=== PATIENT | male | born 1935 | race Two or more races ===

== ENCOUNTER 2016-04-13 04:15 | Emergency (ER) | payer MEDICARE, OTHER ==
[~2016-04-13] VITALS: Ht 165.1 cm; Wt 84.8 kg
[~2016-04-13 04:15] MED LIST: ALLO300T2 PO; ASPI81TA2 PO; CLOP75TA2 PO; FLUT16SP BNOSTRILS; FURO40TA5 PO; LEVOTHYROXINE; LISI2.5T2 PO; LORA10TA7 PO; METO-302 PO; PANT40TA2 PO; TRAM50TA2 PO
--- NOTE | 2016-04-13 04:20 | NUR ---
PT BIBRA FOR SOB/ASTHMA/WHEEZING; "GETTING WORSE". 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 PT AOX3 NOTED WITH SOB AND WHEEZING. NO NVD AT THIS TIME. PT NOT DIAPHORETIC. PT GOWNED AND PLACED ON MONITOR WAITING FOR MD LANDAVERDE.
[2016-04-13] MEDS ORDERED: IPRATROPIUM NEB FS 0.5 MG/2.5 ML AMPUL.NEB NEB ONE (04:30)
[2016-04-13] MEDS ORDERED: ALBUTEROL FS 2.5 MG/0.5 ML VIAL.NEB NEB ONE (04:30)
--- NOTE | 2016-04-13 04:30 | NUR ---
CALLED RT FOR BREATHING TX.
[2016-04-13] MEDS ORDERED: ALBUTEROL FS 2.5 MG/0.5 ML VIAL.NEB ONE ×2 (04:42→04:43)
--- NOTE | 2016-04-13 04:52 | NUR ---
RT AT BEDSIDE FOR BREATHING TX
--- NOTE | 2016-04-13 05:00 | NUR ---
XRAY AT BEDSIDE
[2016-04-13] MEDS ORDERED: DEXAMETHASONE SOD PHOSPHATE 10 MG/ML VIAL ONE (05:35)
[2016-04-13] MEDS ORDERED: DEXAMETHASONE SOD PHOSPHATE 4 MG/ML VIAL IM ONE (06:00)
--- NOTE | 2016-04-13 06:27 | NUR ---
IV removed. Catheter intact and site benign. Pressure and 4x4 applied to site. No bleeding noted. Patient discharged to home in stable condition. Written and verbal after care instructions given. Patient verbalizes understanding of instruction. ambulatory with a steady gait
[2016-04-13 06:29] VITALS: BP 138/68
== END 2016-04-13 06:30 | disposition home or self-care (01) ==
LOC: ER 04:17
DX: J45.909 Unspecified asthma, uncomplicated (principal); J06.9 Acute upper respiratory infection, unspecified; Z95.0 Presence of cardiac pacemaker; Z87.891 Personal history of nicotine dependence; Z79.82 Long term (current) use of aspirin
CPT/HCPCS: 71010; 94640 ×2; 96372; 99284; A4606; J1100; Z7610

== ENCOUNTER 2022-03-01 20:23 | Inpatient (IN) | payer MEDICARE, OTHER ==
[~2022-03-01] VITALS: Ht 162.6 cm; Wt 83.9 kg
[~2022-03-01 20:23] MED LIST changes: +ASPI-1169 PO; -ASPI81TA2 PO; +CLOP75TA15 PO; -CLOP75TA2 PO; -METO-302 PO; +METO25TA4 PO
--- NOTE | 2022-03-01 20:34 | NUR ---
BIBRA 39 FROM HOME C/O SOB RA 85%. PLACE ON BED, AAOX4, DYSPNEIC RR-30 STURATING AT 96%RA.
[2022-03-01] MEDS ORDERED: IPRATROPIUM NEB FS 0.5 MG/2.5 ML AMPUL.NEB ONE ×2 (20:39→21:21)
[2022-03-01] MEDS ORDERED: ALBUTEROL FS 2.5 MG/0.5 ML VIAL.NEB ONE (20:39)
--- NOTE | 2022-03-01 20:45 | NUR ---
DIRECTOR FIXED INCOME AT BEDSIDE
[2022-03-01] MEDS ORDERED: methylPREDNISolone SOD SUCC 125 MG/2ML VIAL ONE (20:56)
[2022-03-01] MEDS ORDERED: FUROSEMIDE 40 MG/4 ML VIAL ONE (20:56)
[2022-03-01] MEDS ORDERED: Magnesium 1GM/D5W 100ML PREMIX 200 ML IV ONE (20:56)
[2022-03-01] MEDS ORDERED: methylPREDNISolone SOD SUCC 125 MG/2ML VIAL IV ONE (21:00)
[2022-03-01] MEDS ORDERED: FUROSEMIDE 40 MG/4 ML VIAL IV ONE (21:00)
[2022-03-01] MEDS ORDERED: ALBUTEROL FS 2.5 MG/0.5 ML VIAL.NEB NEB ONE (21:00)
[2022-03-01] MEDS ORDERED: IPRATROPIUM NEB FS 0.5 MG/2.5 ML AMPUL.NEB NEB ONE ×2 (21:00→21:30)
--- NOTE | 2022-03-01 21:00 | NUR ---
BIOFUELS PLANT CONSTRUCTION WORKER AT BEDSIDE FOR BREATHING TREATMENT
[2022-03-01 21:01] LABS: BASOPHILS % (AUTO) 0.3 % (0.0-2.0); EOSINOPHILS % (AUTO) 2.6 % (0.0-6.0); HEMATOCRIT 39 % (39-51); LYMPHOCYTES # (AUTO) 1.8 K/uL (0.8-4.8); LYMPHOCYTES % (AUTO) 28.7 % (20.0-44.0); MEAN CORPUSCULAR HGB CONC 34 g/dl (31.0-36.0); MEAN CORPUSCULAR VOLUME 93 fL (80-96); MONOCYTES # (AUTO) 0.8 K/uL (0.1-1.30); MONOCYTES % (AUTO) 12.9 % (2.0-12.0); NEUTROPHILS # (AUTO) 3.5 K/uL (1.8-8.9); NEUTROPHILS % (AUTO) 55.5 % (43.0-81.0); PLATELET COUNT (AUTO) 134 K/uL (150-450); RED BLOOD CELL COUNT(AUTO) 4.16 MIL/uL (4.5-6.0); WHITE BLOOD COUNT (AUTO) 6.3 K/uL (4.3-11.0)
[2022-03-01] MEDS: Magnesium 1GM/D5W 100ML PREMIX 100 ML IV SCH ×2 (21:10→22:03)
--- NOTE | 2022-03-01 21:15 | NUR ---
X-RAY TECH AT BEDSIDE
[2022-03-01 21:16] LABS: CALCIUM, SERUM 8.8 mg/dL (8.5-10.1); CARBON DIOXIDE 28 mmol/L (21-32); CHLORIDE 100 mmol/L (98-107); CREATININE 1.5 mg/dL (0.6-1.3); GLUCOSE 121 mg/dL (74-106); SODIUM SERUM 135 mmol/L (136-145); UREA NITROGEN, BLOOD 12 mg/dL (7-18)
[2022-03-01] MEDS ORDERED: ALBUTEROL FS 2.5 MG/3 ML VIAL.NEB ONE (21:21)
[2022-03-01] MEDS ORDERED: ALBUTEROL FS 2.5 MG/3 ML VIAL.NEB NEB ONE (21:30)
--- NOTE | 2022-03-01 22:27 | NUR ---
SWAB FOR COVID19 SENT TO LAB
--- NOTE | 2022-03-01 23:26 | NUR ---
[facility] PAGED
[2022-03-01] MEDS ORDERED: LORAZEPAM INJ 2 MG/ML VIAL ONE (23:53)
[2022-03-02] MEDS ORDERED: ALBUTEROL FS 2.5 MG/0.5 ML VIAL.NEB NEB PRN
[2022-03-02] MEDS ORDERED: ENOXAPARIN SODIUM 40 MG/0.4 ML DISP.SYRIN SQ SCH
[2022-03-02] MEDS ORDERED: ONDANSETRON HCL/PF 4 MG/2 ML VIAL IVP PRN
[2022-03-02] MEDS ORDERED: IPRATROPIUM/ALBUTEROL INHALER IH SCH
[2022-03-02] MEDS ORDERED: MORPHINE SULFATE INJ 2 MG/ML DISP.SYRIN IV PRN
[2022-03-02] MEDS ORDERED: hydrALAZINE HCL IV 20 MG VIAL IV PRN
[2022-03-02 00:21] LABS: THYROID STIMULATING HORMONE 7.214 uIU/mL (0.358-3.74)
--- NOTE | 2022-03-02 01:15 | NUR ---
RECIEVED ROOM 107
--- NOTE | 2022-03-02 01:57 | NUR ---
REPORT GIVEN TO SUNITA IRBY FOR ISABELLE
--- NOTE | 2022-03-02 02:30 | NUR ---
RN NOTES ADMITTED A 86 Y/O MALE PATIENT FROM ER WITH DX CHF VS COPD. ON ROOM AIR SATING 92%. WITH IV ACCESS AT R AC# 20 PATENT FLUSHES WELL. VITAL SIGNS TAKEN AND RECORDED AFEBRILE. SAFELY TRANSFER TO BED. COMPLETE BODY ASSESSMENT DONE. HOOKED TO OXYGEN VIA NASAL CANULA @ 2LPM PATIENT RR 30'S. ALL SAFETY MEASURES IN PLACE AT ALL TIMES. HOB ELEVATED. CALL LIGHT WITHIN REACH. WILL CLOSELY MONITOR THE PATIENT
[2022-03-02 03:05] VITALS: BP 123/43
[2022-03-02 04:00] VITALS: BP 125/45
[2022-03-02] MEDS ORDERED: methylPREDNISolone SOD SUCC 40 MG/ML VIAL IV SCH (05:00)
[2022-03-02 06:32] LABS: BASOPHILS % (AUTO) 0.1 % (0.0-2.0); HEMATOCRIT 36 % (39-51); HEMOGLOBIN 12.4 g/dL (13.5-17.5); LYMPHOCYTES # (AUTO) 0.5 K/uL (0.8-4.8); LYMPHOCYTES % (AUTO) 13.3 % (20.0-44.0); MEAN CORPUSCULAR HGB CONC 34 g/dl (31.0-36.0); MEAN CORPUSCULAR VOLUME 93 fL (80-96); MONOCYTES # (AUTO) 0.1 K/uL (0.1-1.30); MONOCYTES % (AUTO) 2.3 % (2.0-12.0); NEUTROPHILS # (AUTO) 3.5 K/uL (1.8-8.9); NEUTROPHILS % (AUTO) 84.3 % (43.0-81.0); PLATELET COUNT (AUTO) 125 K/uL (150-450); RED BLOOD CELL COUNT(AUTO) 3.92 MIL/uL (4.5-6.0); WHITE BLOOD COUNT (AUTO) 4.1 K/uL (4.3-11.0)
--- NOTE | 2022-03-02 06:42 | NUR ---
RN NOTES PATIENT REMAINS STABLE NO SOB NO DISTRESS NOTED AT THIS TIME. ALL SAFETY MEASURES IN PLACE AT ALL TIMES. HOB ELEVATED. CALL LIGHT WITHIN REACH. FREQUENT VISUAL MONITORING RENDERED. WILL ENDORSED TO MORNING SHIFT FOR ISABELLE
[2022-03-02 06:51] LABS: ALANINE AMINOTRANSFERASE 19 U/L (12-78); ALBUMIN 3.3 g/dL (3.4-5.0); ALKALINE PHOSPHATASE 68 U/L (46-116); ASPARTATE AMINOTRANSFERASE 18 U/L (15-37); BILIRUBIN,TOTAL 0.3 mg/dL (0.2-1.0); CALCIUM, SERUM 8.9 mg/dL (8.5-10.1); CARBON DIOXIDE 30 mmol/L (21-32); CHLORIDE 102 mmol/L (98-107); CREATININE 1.6 mg/dL (0.6-1.3); GLUCOSE 176 mg/dL (74-106); MAGNESIUM 2.6 mg/dL (1.8-2.4); PHOSPHORUS 2.5 mg/dL (2.5-4.9); POTASSIUM 4.5 mmol/L (3.5-5.1); SODIUM SERUM 138 mmol/L (136-145); TOTAL PROTEIN, SERUM 7.3 g/dL (6.4-8.2); UREA NITROGEN, BLOOD 14 mg/dL (7-18)
--- NOTE | 2022-03-02 07:45 | NUR ---
RN NOTE RECEIVED PT AWAKE IN BED, IN O2 VIA NC @2L. TOLERATING WELL. WITH IV ACCESS ON LAC G20. WITH NO IVF. SAFETY MEASURES FOLLOWED. WILL CONTINUE TO MONITOR.
[2022-03-02 08:00] VITALS: BP 125/47
[2022-03-02] MEDS: FUROSEMIDE 40 MG/4 ML VIAL IV SCH (08:07)
[2022-03-02] MEDS: ASPIRIN 81 MG TAB.CHEW PO SCH (08:07)
[2022-03-02] MEDS: PANTOPRAZOLE 40 MG TABLET.DR PO SCH (08:07)
[2022-03-02] MEDS: ALLOPURINOL 100 MG TABLET PO SCH (08:07)
[2022-03-02] MEDS: CLOPIDOGREL BISULFATE 75 MG TABLET PO SCH (08:07)
[2022-03-02] MEDS: LISINOPRIL (5MG) 5 MG TABLET PO SCH (08:08)
[2022-03-02] MEDS: METOPROLOL SUCCINATE 25 MG TAB.SR.24H PO SCH (08:09)
[2022-03-02] MEDS: HEPARIN SODIUM, PORCINE 5000 UNITS/1 ML VIAL SQ SCH ×2 (08:13→21:25)
--- NOTE | 2022-03-02 11:37 | NUR ---
RN NOTE PT PRONOUNCED @1130 BY GILMA AND CORRECTIONAL OFFICER CAPTAIN, PMD AND HOSPICE MADE AWARE. PT NO PULSE UPON PALPATION AND V/S. TELE MONITOR SHOWING ASYSTOLE. SPOKE WITH PHYSICIST LIGHT AND OPTICS SHIELLA. Addendum: 03/02/22 at 1337 by FRITZ JOSEPH RN DOCUMENT ERROR
[2022-03-02 12:00] VITALS: BP 132/63
--- NOTE | 2022-03-02 13:34 | NUR ---
RN NOTE URINE SPECIMEN COLLECTED, PLACE CALL TO LAB FOR P/U.
[2022-03-02 16:00] VITALS: BP 118/49
[2022-03-02 18:27] LABS: BILIRUBIN,URINE NEGATIVE (NEGATIVE); COLOR,URINE YELLOW (YELLOW); LEUKOCYTE ESTERASE ,URINE NEGATIVE (NEGATIVE); NITRITE, URINE NEGATIVE (NEGATIVE); PH,URINE 5.5 (5.0-8.0); PROTEIN,URINE NEGATIVE (NEGATIVE); UGLUCOSE NEGATIVE (NEGATIVE); UROBILINOGEN,URINE 0.2 EU/dL (0.2)
[2022-03-02 18:35] LABS: CREATININE, URINE 39.1 MG/DL (30.0-125.0)
--- NOTE | 2022-03-02 19:21 | NUR ---
RN NOTE PT AWAKE IN BED, IN O2 VIA NC @2L. TOLERATING WELL, NOT IN RESPIRATORY DISTRESS. WITH IV ACCESS ON LAC G20. WITH NO IVF. DUE MEDICATIONS TAKEN, AM/PM CARE RENDERED. SAFETY MEASURES FOLLOWED. WILL CONTINUE TO MONITOR.
--- NOTE | 2022-03-02 19:30 | NUR ---
RN NOTES RECEIVED REPORT FROM MORNING SHIFT. PATIENT IN BED A/O X1-2 WITH PERIOD OF CONFUSION BENGALI SPEAKING. WITH IV ACCESS AT R AC# 22 PATENT FLUSHES WELL. WITH OXYGEN INHALATION AT 2LPM SATING 98% NO SOB NO DISTRESS NOTED AT THIS TIME. ALL SAFETY MEASURES IN PLACE AT ALL TIMES. HOB ELEVATED. CALL LIGHT WITHIN REACH. WILL CLOSELY MONITOR THE PATIENT
[2022-03-02 20:00] VITALS: BP 152/73
[2022-03-02] MEDS: ALBUTEROL FS 2.5 MG/0.5 ML VIAL.NEB NEB SCH (20:14)
[2022-03-02] MEDS: IPRATROPIUM NEB FS 0.5 MG/2.5 ML AMPUL.NEB IH SCH (20:26)
--- NOTE | 2022-03-02 21:30 | NUR ---
RN NOTES PATIENT IS AGITATED, REMOVING HIS TELE BOX AND OXYGEN, TRYING TO GET OUT OF BED. DR DONG MADE AWARE WITH NEW ORDER HALDOL 2 MG Q4H PRN.
[2022-03-02] MEDS: HALOPERIDOL LACTATE INJ 5 MG/ML VIAL IM PRN (21:58)
[2022-03-02] MEDS ORDERED: LORAZEPAM INJ 2 MG/ML VIAL IV ONE ×2 (23:00)
--- NOTE | 2022-03-02 23:00 | NUR ---
RN NOTES PATIENT STILL AGITATED PULLING OUT IV ACCESS, AND OXYGEN INHALATION. DR DONG ORDERED ATIVAN 2MG IV 1X DOSE. WILL CLOSELY MONITOR THE PATIENT
[2022-03-03] VITALS: BP 120/57
[2022-03-03] MEDS: IPRATROPIUM NEB FS 0.5 MG/2.5 ML AMPUL.NEB IH SCH ×4 (01:27→20:26)
[2022-03-03] MEDS: ALBUTEROL FS 2.5 MG/0.5 ML VIAL.NEB NEB SCH ×4 (01:27→20:26)
[2022-03-03 04:00] VITALS: BP 136/60
--- NOTE | 2022-03-03 06:46 | NUR ---
RN NOTES PATIENT REMAINS STABLE NO SOB NOTED. ALL DUE MEDS GIVEN ORDERD PATIENT STILL WITH PERIODS OF AGITATION AND CONFUSION. WRIST RESTRAINTS IN PLACE CIRCULATION CHECK Q2H. WILL ENDORSED TO MORNING SHIFT FOR ISABELLE
[2022-03-03 06:50] LABS: BASOPHILS % (AUTO) 0.1 % (0.0-2.0); HEMATOCRIT 35 % (39-51); LYMPHOCYTES # (AUTO) 0.7 K/uL (0.8-4.8); LYMPHOCYTES % (AUTO) 5.5 % (20.0-44.0); MEAN CORPUSCULAR HGB CONC 34 g/dl (31.0-36.0); MEAN CORPUSCULAR VOLUME 92 fL (80-96); MONOCYTES # (AUTO) 0.7 K/uL (0.1-1.30); NEUTROPHILS # (AUTO) 10.6 K/uL (1.8-8.9); NEUTROPHILS % (AUTO) 88.4 % (43.0-81.0); PLATELET COUNT (AUTO) 153 K/uL (150-450); RED BLOOD CELL COUNT(AUTO) 3.84 MIL/uL (4.5-6.0)
[2022-03-03 06:56] LABS: CALCIUM, SERUM 8.9 mg/dL (8.5-10.1); CARBON DIOXIDE 23 mmol/L (21-32); CHLORIDE 101 mmol/L (98-107); CREATININE 1.5 mg/dL (0.6-1.3); GLUCOSE 124 mg/dL (74-106); MAGNESIUM 2.4 mg/dL (1.8-2.4); PHOSPHORUS 4.1 mg/dL (2.5-4.9); POTASSIUM 4.4 mmol/L (3.5-5.1); SODIUM SERUM 137 mmol/L (136-145); UREA NITROGEN, BLOOD 34 mg/dL (7-18)
--- NOTE | 2022-03-03 07:32 | NUR ---
RN OPENING NOTES RECEIVED PATIENT IN BED , AWAKE , A/O X1-2 WITH PERIOD OF CONFUSION CANADIAN SPEAKING. WITH IV ACCESS AT R FA # 22 PATENT FLUSHES WELL. WITH OXYGEN INHALATION AT 2LPM SATING 96% NO SOB NO DISTRESS NOTED AT THIS TIME. SAFETY MEASURES IN PLACE AT ALL TIMES. SIDERAILS UP X 2 , WITH BILATERAL SOFT RESTRAINTS ON , ON TELE MONITOR WITH SR WITH HR AT 60 , HOB ELEVATED. CALL LIGHT WITHIN REACH. WILL CONTINUE TO MONITOR PATIENT
[2022-03-03] MEDS: PANTOPRAZOLE 40 MG TABLET.DR PO SCH (08:43)
[2022-03-03] MEDS: METOPROLOL SUCCINATE 25 MG TAB.SR.24H PO SCH (08:44)
[2022-03-03] MEDS: ALLOPURINOL 100 MG TABLET PO SCH (08:44)
[2022-03-03] MEDS: CLOPIDOGREL BISULFATE 75 MG TABLET PO SCH (08:44)
[2022-03-03] MEDS: ASPIRIN 81 MG TAB.CHEW PO SCH (08:44)
[2022-03-03] MEDS: FUROSEMIDE 40 MG/4 ML VIAL IV SCH (08:48)
[2022-03-03] MEDS: HEPARIN SODIUM, PORCINE 5000 UNITS/1 ML VIAL SQ SCH ×2 (08:48→21:06)
[2022-03-03] MEDS: LISINOPRIL (5MG) 5 MG TABLET PO SCH (08:49)
[2022-03-03 08:52] VITALS: BP 143/84
[2022-03-03] MEDS: HALOPERIDOL LACTATE INJ 5 MG/ML VIAL IM PRN ×3 (11:16→22:19)
[2022-03-03 12:00] VITALS: BP 112/46
[2022-03-03 16:00] VITALS: BP 150/77
[2022-03-03] MEDS ORDERED: FUROSEMIDE 40 MG/4 ML VIAL IV ONE (18:00)
--- NOTE | 2022-03-03 19:35 | NUR ---
RN OPENING NOTES, RECEIVED PATIENT IN BED, AWAKE, A/O X1-2 WITH EPISODES OF CONFUSION AND SINGAPOREAN SPEAKING. ON 2L/MIN VIA N/C AND PT TOLERATED WELL. IV ACCESS ON RFA# 22 INTACT AND PATENT. NO S/S OF INFILTRATIONS. BREATHING EVEN UNLABORED. NO FACIAL GRIMACING NOTED. NO ACUTE DISTRESS. STILL NOTED RESTLESSNESS. BILATERAL SOFT RESTRAINTS ON. ALL SAFETY MEASURES IN PLACE. SIDERAILS UP X 3, HOB ELEVATED. PLACE CALL LIGHT WITHIN REACH. WILL CONTINUE TO MONITOR.
--- NOTE | 2022-03-03 19:38 | NUR ---
RN CLOSING NOTES PATIENT IN BED , AWAKE , A/O X1-2 WITH PERIOD OF CONFUSION YAKUT SPEAKING. WITH IV ACCESS AT R FA # 22 PATENT FLUSHES WELL. WITH OXYGEN INHALATION AT 2LPM SATING 96% NO SOB NO DISTRESS NOTED AT THIS TIME. ALL DUE MEDS GIVEN ORDERED , VERY ANXIOUS AND TRIED TO CLIMB OUT OF BED , HALDOL GIVEN ORDERED , PATIENT NOTED VERY CONGESTED AROUNND [address] DENNY WITH ORDER OF LASIX 40 MG IV X ONE DOSE . SAFETY MEASURES IN PLACE AT ALL TIMES. SIDERAILS UP X 2 , WITH BILATERAL SOFT RESTRAINTS ON , ON TELE MONITOR WITH SR WITH HR AT 60 , HOB ELEVATED. CALL LIGHT WITHIN REACH. ENDORSED TO NEXT SHIFT
[2022-03-03 20:00] VITALS: BP 149/71
--- NOTE | 2022-03-03 20:20 | NUR ---
RN NOTES: PT SUPPOSED TO TRANSFER TO [facility]. REPORT GIVEN TO RR RN. NOTED PT WITH SOB, T[place], RR-29. INCREASED O2 TO 4L/MIN. O2 ST 96%. WILL KEEP THE PT IN BARRIE AT THIS MOMENT.
--- NOTE | 2022-03-03 21:03 | NUR ---
RN NOTES: AWA CHACON [phone] CALLED. GAVE HIM THE UPDATES.
--- NOTE | 2022-03-03 22:25 | NUR ---
RN NOTES: PT NOTED WITH AGITATION, RESTLESSNESS, KEPT TRYING TO GETTING UP FROM THE BED. BILATERAL RESTRAINT ON. HALDOL IM 2MG/0.4 ML GIVEN. PT TOLERATED WELL.
[2022-03-04] VITALS: BP 142/71
[2022-03-04] MEDS: IPRATROPIUM NEB FS 0.5 MG/2.5 ML AMPUL.NEB IH SCH ×4 (02:24→19:58)
[2022-03-04] MEDS: ALBUTEROL FS 2.5 MG/0.5 ML VIAL.NEB NEB SCH ×4 (02:25→19:58)
[2022-03-04 04:00] VITALS: BP 134/52
--- NOTE | 2022-03-04 06:32 | NUR ---
RN CLOSING NOTES, PATIENT IN BED, SLEEPING BUT EASILY AROUSABLE, A/O X1-2 WITH EPISODES OF CONFUSION AND [place] SPEAKING. ON 2L/MIN VIA N/C AND PT TOLERATED WELL. O2 SAT 99%. IV ACCESS ON RFA# 22 INTACT AND PATENT. NO S/S OF INFILTRATIONS. BREATHING EVEN UNLABORED. NO FACIAL GRIMACING NOTED. NO ACUTE DISTRESS. STILL NOTED RESTLESSNESS. BILATERAL SOFT RESTRAINTS ON. RELEASED Q 2 HOURS TO ASSESS CIRCULATIONS. ALL DUE MEDS GIVEN ORDERED. ALL SAFETY MEASURES IN PLACE. SIDERAILS UP X 3, HOB ELEVATED. PLACE CALL LIGHT WITHIN REACH. WILL ENDORSE TO MORNING SHIFT NURSE.
--- NOTE | 2022-03-04 07:30 | NUR ---
VENEER STAPLER AM NOTES RECEIVED PATIENT IN BED , AWAKE , A/O X1-2 WITH PERIOD OF CONFUSION OMANI SPEAKING. WITH O2 AT 4L NC, O2 SAT 96%. RESPIRATION UNLABORED. V PACING. SR HR 60 ON MONITOR. NO SIGNS OF PAIN. WITH IV ACCESS AT RFA # 22 PATENT FLUSHES WELL. BILATERAL SOFT RESTRAINTS IN PLACE. RELEASED AND CHECKED FOR CIRCULATION THEN Q 2 HOURS. REGULAR DIET. SAFETY MEASURES IN PLACE. HOB ELEVATED. CALL LIGHT WITHIN REACH. WILL CONTINUE TO MONITOR PATIENT
[2022-03-04 07:54] LABS: BASOPHILS % (AUTO) 0.1 % (0.0-2.0); HEMATOCRIT 40 % (39-51); HEMOGLOBIN 13.1 g/dL (13.5-17.5); LYMPHOCYTES # (AUTO) 0.9 K/uL (0.8-4.8); LYMPHOCYTES % (AUTO) 7.8 % (20.0-44.0); MEAN CORPUSCULAR HGB CONC 33 g/dl (31.0-36.0); MEAN CORPUSCULAR VOLUME 93 fL (80-96); MONOCYTES # (AUTO) 0.7 K/uL (0.1-1.30); MONOCYTES % (AUTO) 6.4 % (2.0-12.0); NEUTROPHILS % (AUTO) 85.7 % (43.0-81.0); PLATELET COUNT (AUTO) 176 K/uL (150-450); RED BLOOD CELL COUNT(AUTO) 4.32 MIL/uL (4.5-6.0); WHITE BLOOD COUNT (AUTO) 11.6 K/uL (4.3-11.0)
[2022-03-04 08:00] VITALS: BP 150/63
[2022-03-04] MEDS: PANTOPRAZOLE 40 MG TABLET.DR PO SCH (08:02)
[2022-03-04] MEDS: ASPIRIN 81 MG TAB.CHEW PO SCH (08:11)
[2022-03-04] MEDS: ALLOPURINOL 100 MG TABLET PO SCH (08:12)
[2022-03-04] MEDS: CLOPIDOGREL BISULFATE 75 MG TABLET PO SCH (08:12)
[2022-03-04 08:14] LABS: CALCIUM, SERUM 8.7 mg/dL (8.5-10.1); CARBON DIOXIDE 29 mmol/L (21-32); CHLORIDE 103 mmol/L (98-107); CREATININE 1.8 mg/dL (0.6-1.3); GLUCOSE 107 mg/dL (74-106); MAGNESIUM 2.3 mg/dL (1.8-2.4); PHOSPHORUS 3.4 mg/dL (2.5-4.9); POTASSIUM 3.9 mmol/L (3.5-5.1); SODIUM SERUM 142 mmol/L (136-145); UREA NITROGEN, BLOOD 36 mg/dL (7-18)
[2022-03-04] MEDS: HEPARIN SODIUM, PORCINE 5000 UNITS/1 ML VIAL SQ SCH ×2 (08:14→20:32)
[2022-03-04] MEDS: METOPROLOL SUCCINATE 25 MG TAB.SR.24H PO SCH (08:33)
[2022-03-04] MEDS: LISINOPRIL (5MG) 5 MG TABLET PO SCH (08:33)
[2022-03-04] MEDS: FUROSEMIDE 40 MG TABLET PO SCH (08:51)
--- NOTE | 2022-03-04 09:30 | NUR ---
RN NOTES DUE MEDS GIVEN RFA IV ACCESS PULLED OUT. CALLED FOR MIDLINE
[2022-03-04] MEDS ORDERED: FLUT1BLS INH (10:21)
[2022-03-04] MEDS ORDERED: TAMS-12 PO (10:21)
[2022-03-04] MEDS ORDERED: LEVO-146 PO (10:21)
[2022-03-04] MEDS ORDERED: VORT5TAB PO (10:21)
[2022-03-04] MEDS ORDERED: FINA5TAB11 PO (10:21)
[2022-03-04] MEDS ORDERED: BRIM5DRO2 EACHEYE (10:21)
[2022-03-04] MEDS ORDERED: APIX2.5T PO (10:21)
[2022-03-04] MEDS ORDERED: SPIR25TA6 PO (10:21)
--- NOTE | 2022-03-04 10:40 | NUR ---
RN NOTES NEW IV ACCESS - SUSAN MIDLINE G18. INTACT CDI
[2022-03-04 12:00] VITALS: BP_SYST 120; BP_SYST 133; BP_DIAS 56; BP_DIAS 61
[2022-03-04 16:00] VITALS: BP 133/61
[2022-03-04] MEDS: methylPREDNISolone SOD SUCC 40 MG/ML VIAL IV SCH (16:45)
[2022-03-04] MEDS: LEVOFLOXACIN (250MG) 250 MG TABLET PO SCH (16:45)
--- NOTE | 2022-03-04 19:30 | NUR ---
UTILITY AGENT OPENING NOTE RECEIVED PATIENT IN BED, AWAKE, A/O X1-2 WITH PERIODS OF CONFUSION, AMERICAN SPEAKING ONLY. WITH O2 AT 3L NC, O2 SAT 97%. RESPIRATION UNLABORED. V PACING. SR HR 60s ON MONITOR. NO SIGNS OF PAIN. WITH IV ACCESS AT RFA # 22 PATENT FLUSHES WELL. BILATERAL SOFT RESTRAINTS IN PLACE. RELEASED AND CHECKED FOR CIRCULATION THEN Q 2 HOURS. REGULAR DIET. SAFETY MEASURES IN PLACE. HOB ELEVATED. CALL LIGHT WITHIN REACH. WILL CONTINUE TO MONITOR PATIENT
--- NOTE | 2022-03-04 19:35 | NUR ---
MS RN CLOSING NOTES PATIENT IN BED , RESTING, A/O X1-2 WITH PERIOD OF CONFUSION ERITREAN SPEAKING. WITH O2 AT 4L NC, O2 SAT 97%. RESPIRATION UNLABORED. NO SIGNS OF PAIN/DISCOMFORT. WITH IV ACCESS AT SUSAN MIDLINE G 18 PATENT FLUSHES WELL. BILATERAL SOFT RESTRAINTS IN PLACE. RELEASED AND CHECKED FOR CIRCULATION THEN Q 2 HOURS. REGULAR DIET. SAFETY MEASURES IN PLACE. HOB ELEVATED. CALL LIGHT WITHIN REACH. PM CARE DONE EARLIER. ALL NEEDS MET AT THIS TIME. ENDORSE TO NEXT SHIFT FOR ISABELLE.
[2022-03-04 20:00] VITALS: BP 131/71
--- NOTE | 2022-03-04 20:25 | NUR ---
RN NOTE RAPID INFLUENZA ANTIGEN A + B DONE. SPECIMEN SENT TO LAB.
[2022-03-04] MEDS: ACETAMINOPHEN 325 MG TABLET PO PRN (21:25)
[2022-03-05] VITALS: BP 135/67
[2022-03-05] MEDS: IPRATROPIUM NEB FS 0.5 MG/2.5 ML AMPUL.NEB IH SCH ×4 (02:20→19:47)
[2022-03-05] MEDS: ALBUTEROL FS 2.5 MG/0.5 ML VIAL.NEB NEB SCH ×4 (02:20→19:47)
[2022-03-05 04:00] VITALS: BP 101/61
[2022-03-05 06:27] LABS: CALCIUM, SERUM 8.6 mg/dL (8.5-10.1); CARBON DIOXIDE 30 mmol/L (21-32); CHLORIDE 104 mmol/L (98-107); CREATININE 1.9 mg/dL (0.6-1.3); GLUCOSE 147 mg/dL (74-106); MAGNESIUM 2.5 mg/dL (1.8-2.4); PHOSPHORUS 3.1 mg/dL (2.5-4.9); POTASSIUM 4.1 mmol/L (3.5-5.1); SODIUM SERUM 141 mmol/L (136-145); UREA NITROGEN, BLOOD 43 mg/dL (7-18)
--- NOTE | 2022-03-05 06:39 | NUR ---
RN NOTE PT IN BED, SLEEPING. NO SIGNIFICANT CHANGE T/O THE NIGHT. DUE MEDS GIVEN. WILL ENDORSE TO AM SHIFT NURSE FOR ISABELLE.
[2022-03-05 07:28] LABS: BASOPHILS % (AUTO) 0.1 % (0.0-2.0); HEMATOCRIT 39 % (39-51); LYMPHOCYTES # (AUTO) 0.5 K/uL (0.8-4.8); LYMPHOCYTES % (AUTO) 5.8 % (20.0-44.0); MEAN CORPUSCULAR HGB CONC 34 g/dl (31.0-36.0); MEAN CORPUSCULAR VOLUME 92 fL (80-96); MONOCYTES # (AUTO) 0.2 K/uL (0.1-1.30); MONOCYTES % (AUTO) 2.4 % (2.0-12.0); NEUTROPHILS # (AUTO) 8.6 K/uL (1.8-8.9); NEUTROPHILS % (AUTO) 91.7 % (43.0-81.0); PLATELET COUNT (AUTO) 180 K/uL (150-450); RED BLOOD CELL COUNT(AUTO) 4.17 MIL/uL (4.5-6.0); WHITE BLOOD COUNT (AUTO) 9.3 K/uL (4.3-11.0)
--- NOTE | 2022-03-05 07:59 | NUR ---
RN OPENING NOTE RECEIVED PATIENT IN BED, AWAKE, A/O X1-2 WITH PERIODS OF CONFUSION, SLOVENIAN SPEAKING ONLY. WITH O2 AT 3L NC, RESPIRATION UNLABORED, NOT IN DISTRESS, NO FACIAL GRIMACING NOTED. V PACING. WITH IV ACCESS AT RFA # 22 PATENT FLUSHES WELL. BILATERAL SOFT RESTRAINTS IN PLACE. RELEASED AND CHECKED FOR CIRCULATION THEN Q 2 HOURS. REGULAR DIET. SAFETY MEASURES IN PLACE. HOB ELEVATED. CALL LIGHT WITHIN REACH. WILL CONTINUE PLAN OF CARE.
[2022-03-05] MEDS: ACETAMINOPHEN 325 MG TABLET PO PRN ×2 (08:29→16:28)
[2022-03-05] MEDS: CLOPIDOGREL BISULFATE 75 MG TABLET PO SCH (08:29)
[2022-03-05] MEDS: LISINOPRIL (5MG) 5 MG TABLET PO SCH (08:29)
[2022-03-05] MEDS: ASPIRIN 81 MG TAB.CHEW PO SCH (08:29)
[2022-03-05] MEDS: PANTOPRAZOLE 40 MG TABLET.DR PO SCH (08:29)
[2022-03-05] MEDS: METOPROLOL SUCCINATE 25 MG TAB.SR.24H PO SCH (08:30)
[2022-03-05] MEDS: methylPREDNISolone SOD SUCC 40 MG/ML VIAL IV SCH ×2 (08:30→16:28)
[2022-03-05] MEDS: FUROSEMIDE 40 MG TABLET PO SCH (08:30)
[2022-03-05] MEDS: HEPARIN SODIUM, PORCINE 5000 UNITS/1 ML VIAL SQ SCH ×2 (08:31→20:33)
[2022-03-05] MEDS: ALLOPURINOL 100 MG TABLET PO SCH (08:50)
--- NOTE | 2022-03-05 10:00 | NUR ---
RN NOTES RECHECKED BP AFTER GIVEN BLOOD PRESSURE MEDICATION BP= 147/60 HR 61,WILL CONTINUE PLAN OF CARE
[2022-03-05 12:00] VITALS: BP 141/70
--- NOTE | 2022-03-05 16:01 | NUR ---
Next of Kin: Patient's Son, Darryl [phone] contact information
[2022-03-05] MEDS: LEVOFLOXACIN (250MG) 250 MG TABLET PO SCH (16:28)
[2022-03-05] MEDS: ENSURE ENLIVE CHOC 237 ML CAN PO SCH (17:00)
--- NOTE | 2022-03-05 17:04 | NUR ---
RN NOTES NOTED PATIENT BEEN REFUSING BREAKFAST AND LUNCH, PATIENT STATED NOT HUNGRY, ONLY WANT'S WATER, DR. ROBB INFORMED WITH NEW ORDER ENSURE TID, NOTED AND CARRIED OUT. WILL CONTINUE PLAN OF CARE.
--- NOTE | 2022-03-05 18:12 | NUR ---
PER INES SON [phone] PT. HAS HISTORY OF CONFUSION AND HAS OXYGEN AT HOME. CM AWARE.
--- NOTE | 2022-03-05 18:30 | NUR ---
MS RN CLOSING NOTES PATIENT IN BED , RESTING, A/O X1-2 WITH PERIOD OF CONFUSION GREEK SPEAKING. WITH O2 AT 3L NC, O2 SAT 95%, RESPIRATION UNLABORED. NO SIGNS OF PAIN/DISCOMFORT. WITH IV ACCESS AT SUSAN MIDLINE G 18 PATENT AND INTACT, FLUSHES WELL. BILATERAL SOFT RESTRAINTS IN PLACE. RELEASED AND CHECKED FOR CIRCULATION THEN Q 2 HOURS. EPISODES OF GETTING UP, REORRIENT PATIENT. SAFETY MEASURES IN PLACE. HOB ELEVATED. CALL LIGHT WITHIN REACH.WILL ENDORSE TO SCOOP MACHINE OPERATOR NURSE FOR ISABELLE.
--- NOTE | 2022-03-05 19:10 | NUR ---
RN OPENING NOTES PATIENT RECEIVED ON BED SLEEPING BUT AROUSE EASILY, ON NASAL CANULA @ 3LPM SATING AT 94%, RESPIRATORY EVEN AND UNLABORED NO SOB NOTED, AFEBRILE, NO S/S OF DISTRESS NOTED. NOTED WITH SUSAN MID LINE, FLUSHED WITH NS, NO S/S OF INFILTRATION NOTED. NOTED WITH BILATERAL SOFT WRIST RESTRAINT, RELEASE AND REASSESS Q2H FOR CIRCULATION. ALL SAFETY MEASURE PROVIDED. BED IN LOWEST POSITION, LOCKED. CONTINUE TO MONITOR.
[2022-03-05 20:00] VITALS: BP 131/73
[2022-03-06] MEDS: ACETAMINOPHEN 325 MG TABLET PO PRN (01:08)
[2022-03-06] MEDS: IPRATROPIUM NEB FS 0.5 MG/2.5 ML AMPUL.NEB IH SCH ×4 (02:03→19:30)
[2022-03-06] MEDS: ALBUTEROL FS 2.5 MG/0.5 ML VIAL.NEB NEB SCH ×4 (02:03→19:30)
[2022-03-06 04:00] VITALS: BP 108/73
[2022-03-06 06:10] LABS: BASOPHILS % (AUTO) 0.1 % (0.0-2.0); HEMATOCRIT 38 % (39-51); HEMOGLOBIN 12.9 g/dL (13.5-17.5); LYMPHOCYTES # (AUTO) 0.6 K/uL (0.8-4.8); LYMPHOCYTES % (AUTO) 4.1 % (20.0-44.0); MEAN CORPUSCULAR HGB CONC 34 g/dl (31.0-36.0); MEAN CORPUSCULAR VOLUME 92 fL (80-96); MONOCYTES # (AUTO) 0.6 K/uL (0.1-1.30); MONOCYTES % (AUTO) 4.4 % (2.0-12.0); NEUTROPHILS # (AUTO) 12.7 K/uL (1.8-8.9); NEUTROPHILS % (AUTO) 91.4 % (43.0-81.0); PLATELET COUNT (AUTO) 212 K/uL (150-450); RED BLOOD CELL COUNT(AUTO) 4.14 MIL/uL (4.5-6.0); WHITE BLOOD COUNT (AUTO) 13.9 K/uL (4.3-11.0)
[2022-03-06 06:15] LABS: ALANINE AMINOTRANSFERASE 42 U/L (12-78); ALBUMIN 3.3 g/dL (3.4-5.0); ALKALINE PHOSPHATASE 65 U/L (46-116); ASPARTATE AMINOTRANSFERASE 47 U/L (15-37); BILIRUBIN,TOTAL 0.9 mg/dL (0.2-1.0); CALCIUM, SERUM 8.6 mg/dL (8.5-10.1); CARBON DIOXIDE 29 mmol/L (21-32); CHLORIDE 102 mmol/L (98-107); CREATININE 2.2 mg/dL (0.6-1.3); GLUCOSE 131 mg/dL (74-106); MAGNESIUM 2.6 mg/dL (1.8-2.4); PHOSPHORUS 3.3 mg/dL (2.5-4.9); POTASSIUM 4.4 mmol/L (3.5-5.1); SODIUM SERUM 139 mmol/L (136-145); TOTAL PROTEIN, SERUM 7.4 g/dL (6.4-8.2); UREA NITROGEN, BLOOD 54 mg/dL (7-18)
[2022-03-06 08:00] VITALS: BP 128/65
[2022-03-06] MEDS: METOPROLOL SUCCINATE 25 MG TAB.SR.24H PO SCH (08:23)
[2022-03-06] MEDS: PANTOPRAZOLE 40 MG TABLET.DR PO SCH (08:24)
[2022-03-06] MEDS: ALLOPURINOL 100 MG TABLET PO SCH (08:24)
[2022-03-06] MEDS: CLOPIDOGREL BISULFATE 75 MG TABLET PO SCH (08:24)
[2022-03-06] MEDS: ASPIRIN 81 MG TAB.CHEW PO SCH (08:24)
[2022-03-06] MEDS: methylPREDNISolone SOD SUCC 40 MG/ML VIAL IV SCH (08:25)
[2022-03-06] MEDS: ENSURE ENLIVE CHOC 237 ML CAN PO SCH ×3 (08:25→19:01)
[2022-03-06] MEDS: LISINOPRIL (5MG) 5 MG TABLET PO SCH (08:25)
[2022-03-06] MEDS: HEPARIN SODIUM, PORCINE 5000 UNITS/1 ML VIAL SQ SCH ×2 (08:27→21:46)
[2022-03-06] MEDS ORDERED: methylPREDNISolone SOD SUCC 40 MG/ML VIAL IV SCH (14:30)
[2022-03-06] MEDS: LEVOFLOXACIN (250MG) 250 MG TABLET PO SCH (15:45)
--- NOTE | 2022-03-06 19:30 | NUR ---
RN OPENING NOTE PT FOUND WATCHING TV IN SEMI-FOWLERS POSITION. EYES OPEN SPONTANEOUSLY BUT DOES NOT ANSWER MY QUESTIONS. SKIN WARM, DRY AND INTACT. PT ON NC @ 3LPM AND SATTING AT 93%. SUSAN MIDLINE INTACT. SAFETY PRECAUTIONS IN PLACE. BED LOCKED AND AT LOWEST POSITION. BED ALARM ON AND BILAT SOFT RESTRAINTS IN PLACE. CALL LIGHT WITHIN REACH.
[2022-03-06 20:00] VITALS: BP 128/66
[2022-03-07] MEDS: IPRATROPIUM NEB FS 0.5 MG/2.5 ML AMPUL.NEB IH SCH ×4 (01:15→20:15)
[2022-03-07] MEDS: ALBUTEROL FS 2.5 MG/0.5 ML VIAL.NEB NEB SCH ×4 (01:15→20:16)
[2022-03-07 04:00] VITALS: BP 106/63
[2022-03-07 07:35] LABS: HEMATOCRIT 39 % (39-51); HEMOGLOBIN 13.2 g/dL (13.5-17.5); LYMPHOCYTES # (AUTO) 0.9 K/uL (0.8-4.8); LYMPHOCYTES % (AUTO) 6.1 % (20.0-44.0); MEAN CORPUSCULAR HGB CONC 34 g/dl (31.0-36.0); MEAN CORPUSCULAR VOLUME 93 fL (80-96); MONOCYTES # (AUTO) 1.1 K/uL (0.1-1.30); MONOCYTES % (AUTO) 7.3 % (2.0-12.0); NEUTROPHILS # (AUTO) 12.5 K/uL (1.8-8.9); NEUTROPHILS % (AUTO) 86.6 % (43.0-81.0); PLATELET COUNT (AUTO) 233 K/uL (150-450); RED BLOOD CELL COUNT(AUTO) 4.16 MIL/uL (4.5-6.0); WHITE BLOOD COUNT (AUTO) 14.5 K/uL (4.3-11.0)
--- NOTE | 2022-03-07 07:45 | NUR ---
RN OPENING NOTES RECEIVED PATIENT REPORT FROM NIGHTSHIFT RN. PATIENT AWAKE IN BED BREATHING EVELY AND UNLABORED ON 3 LITERS SUPPLEMENTAL OXYGEN VIA NASAL CANULA. IV ACCESS ON RIGHT UPPER ARM MIDLINE FLUSHING EASILY WITH NO RESISTANCE. BILATERAL WRIST RESTRAINTS NOTED, CIRCULATION IS WITHIN NORMAL LIMITS. SAFETY MEASURES IMPLEMENTED WILL CONTINUE PLAN OF CARE AND ANTICIPATE NEEDS.
[2022-03-07 07:49] LABS: CALCIUM, SERUM 9.2 mg/dL (8.5-10.1); CARBON DIOXIDE 29 mmol/L (21-32); CHLORIDE 103 mmol/L (98-107); CREATININE 2.8 mg/dL (0.6-1.3); GLUCOSE 130 mg/dL (74-106); MAGNESIUM 2.7 mg/dL (1.8-2.4); PHOSPHORUS 4.4 mg/dL (2.5-4.9); POTASSIUM 3.8 mmol/L (3.5-5.1); SODIUM SERUM 144 mmol/L (136-145); UREA NITROGEN, BLOOD 67 mg/dL (7-18)
[2022-03-07 08:00] VITALS: BP 145/66
[2022-03-07] MEDS: ASPIRIN 81 MG TAB.CHEW PO SCH (08:44)
[2022-03-07] MEDS: PANTOPRAZOLE 40 MG TABLET.DR PO SCH (08:44)
[2022-03-07] MEDS: methylPREDNISolone SOD SUCC 40 MG/ML VIAL IV SCH (08:44)
[2022-03-07] MEDS: ALLOPURINOL 100 MG TABLET PO SCH (08:45)
[2022-03-07] MEDS: CLOPIDOGREL BISULFATE 75 MG TABLET PO SCH (08:45)
[2022-03-07] MEDS: METOPROLOL SUCCINATE 25 MG TAB.SR.24H PO SCH (08:45)
[2022-03-07] MEDS: LISINOPRIL (5MG) 5 MG TABLET PO SCH (08:46)
[2022-03-07] MEDS: HEPARIN SODIUM, PORCINE 5000 UNITS/1 ML VIAL SQ SCH ×2 (08:50→21:47)
[2022-03-07] MEDS: ENSURE ENLIVE CHOC 237 ML CAN PO SCH ×3 (08:51→17:02)
[2022-03-07] MEDS: IV D5/ 0.9% NACL 1,000 ML IV SCH (12:05)
[2022-03-07] MEDS: LEVOFLOXACIN (250MG) 250 MG TABLET PO SCH (15:32)
[2022-03-07 16:00] VITALS: BP 109/57
--- NOTE | 2022-03-07 18:58 | NUR ---
PATIENT REMAINS IN ROOM. HAND OFF REPORT GIVEN TO NIGHTSHIFT RN FOR CONTINUATION OF CARE.
--- NOTE | 2022-03-07 19:30 | NUR ---
RN OPENING NOTE PT A&OX2 AND CONFUSED. TURKMEN SPEAKING. PT ON 3 LPM NC AND TOLERATING WELL. SKIN IS WARM, DRY AND INTACT. SUSAN MIDLINE INTACT AND FLUSHED. BILAT SOFT WRIST RESTARINTS IN PLACE. PT DENIES OTHER NEEDS AT THIS TIME. SAFETY PRECAUTIONS IN PLACE. BED LOCKED AND AT LOWEST POSITION WITH X2 RAILS UP. BED ALARM ON AND CALL LIGHT WITHIN REACH.
[2022-03-08] VITALS: BP 111/57
[2022-03-08] MEDS: IPRATROPIUM NEB FS 0.5 MG/2.5 ML AMPUL.NEB IH SCH ×4 (01:21→20:40)
[2022-03-08] MEDS: ALBUTEROL FS 2.5 MG/0.5 ML VIAL.NEB NEB SCH ×4 (01:22→20:40)
[2022-03-08] MEDS: IV D5/ 0.9% NACL 1,000 ML IV SCH ×2 (02:25→19:35)
--- NOTE | 2022-03-08 07:10 | NUR ---
RN NOTES RECEIVED PT ON BED, ALERT/ CONFUSED , GRENADIAN SPEAKING. PT ON 2L O2 N/C , SUSAN MIDLINE INTACT AND FLUSHED. BARBY. SOFT WRIST RESTRAINTS ON FOR PT SAFETY , SAFETY PRECAUTIONS IN PLACE. BED LOCKED AND AT LOWEST POSITION WITH RAILS UP x3. BED ALARM ON AND CALL LIGHT WITHIN EASY REACH. CONTINUE TO MONITOR .
[2022-03-08 07:24] LABS: BASOPHILS % (AUTO) 0.1 % (0.0-2.0); HEMATOCRIT 37 % (39-51); HEMOGLOBIN 12.4 g/dL (13.5-17.5); LYMPHOCYTES # (AUTO) 0.5 K/uL (0.8-4.8); LYMPHOCYTES % (AUTO) 3.3 % (20.0-44.0); MEAN CORPUSCULAR HGB CONC 33 g/dl (31.0-36.0); MEAN CORPUSCULAR VOLUME 93 fL (80-96); MONOCYTES # (AUTO) 0.9 K/uL (0.1-1.30); NEUTROPHILS # (AUTO) 13.2 K/uL (1.8-8.9); NEUTROPHILS % (AUTO) 90.6 % (43.0-81.0); PLATELET COUNT (AUTO) 220 K/uL (150-450); RED BLOOD CELL COUNT(AUTO) 3.98 MIL/uL (4.5-6.0); WHITE BLOOD COUNT (AUTO) 14.6 K/uL (4.3-11.0)
[2022-03-08 08:00] VITALS: BP 123/57
[2022-03-08] MEDS: CLOPIDOGREL BISULFATE 75 MG TABLET PO SCH (08:23)
[2022-03-08] MEDS: ALLOPURINOL 100 MG TABLET PO SCH (08:23)
[2022-03-08] MEDS: PANTOPRAZOLE 40 MG TABLET.DR PO SCH (08:25)
[2022-03-08] MEDS: METOPROLOL SUCCINATE 25 MG TAB.SR.24H PO SCH (08:25)
[2022-03-08] MEDS: ASPIRIN 81 MG TAB.CHEW PO SCH (08:26)
[2022-03-08] MEDS: methylPREDNISolone SOD SUCC 40 MG/ML VIAL IV SCH (08:26)
[2022-03-08] MEDS: ENSURE ENLIVE CHOC 237 ML CAN PO SCH ×3 (08:26→16:46)
[2022-03-08] MEDS: HEPARIN SODIUM, PORCINE 5000 UNITS/1 ML VIAL SQ SCH ×2 (08:28→21:33)
[2022-03-08 08:42] LABS: CARBON DIOXIDE 27 mmol/L (21-32); CHLORIDE 103 mmol/L (98-107); CREATININE 2.1 mg/dL (0.6-1.3); GLUCOSE 125 mg/dL (74-106); POTASSIUM 3.9 mmol/L (3.5-5.1); SODIUM SERUM 138 mmol/L (136-145); UREA NITROGEN, BLOOD 56 mg/dL (7-18)
[2022-03-08 08:43] LABS: MAGNESIUM 2.4 mg/dL (1.8-2.4)
[2022-03-08 08:48] VITALS: BP 125/75
--- NOTE | 2022-03-08 08:49 | NUR ---
received awake,alert,unable to ff commands ,able to eat breakfast 75 percent.fall risk precaution observed.
[2022-03-08 10:47] LABS: PHOSPHORUS 3.1 mg/dL (2.5-4.9)
[2022-03-08] MEDS: HALOPERIDOL LACTATE INJ 5 MG/ML VIAL IM PRN (11:31)
[2022-03-08 12:00] VITALS: BP 135/54
--- NOTE | 2022-03-08 12:00 | NUR ---
RN NOTES PT RESTLESS , SCREAMS OUT FOR WATER AT TIMES, VSS STABLE CONTINUE TO MONITOR .
[2022-03-08] MEDS: HYDROCODONE/APAP 5/325MG TABLET PO PRN ×2 (13:56→22:24)
[2022-03-08 16:00] VITALS: BP 148/62
[2022-03-08] MEDS: LEVOFLOXACIN (250MG) 250 MG TABLET PO SCH (16:45)
--- NOTE | 2022-03-08 18:00 | NUR ---
RN NOTES NO SIGNIFCANT CHANGES NOTED ON THIS SHIFT , WILL ENDORSE TO MULTI OPERATION FORMING MACHINE SETTER NURSE FOR CONTINUITY OF CARE .
[2022-03-08] MEDS: ACETAMINOPHEN 325 MG TABLET PO PRN (19:34)
--- NOTE | 2022-03-08 19:47 | NUR ---
RN OPENING NOTE PT FOUND SITTING UP IN BED. A&OX2 AND CONFUSED. C/O PAIN AND WAS GIVEN 650 MG ACETAMINOPHEN PO. PT ON 2 LPM NC AND TOLERATING WELL. RESPIRATIONS EVEN AND UNLABORED. SKIN IS WARM AND DRY. SUSAN 22G IV INTACT AND RUNNING D5NS @ 75 MLM/HR. BILAT SOFT WRIST RESTRAINTS IN PLACE. SAFETY PRECAUTIONS IN PLACE. BED LOCKED AND AT LOWEST LEVEL. X2 RAILS UP AND BED ALARM ON. CALL LIGHT WITHIN REACH.
[2022-03-09] VITALS: BP 127/71
--- NOTE | 2022-03-09 00:53 | NUR ---
RN NOTE PT R ARM 22G IV INFILTRATED. IV DISCONTINUED. SKIN IS TAUGHT AND COLD. ELEVATED EXTREMITY AND APPLIED COLD PACKS. WILL CONTINUE TO MONITOR AND REASSESS.
--- NOTE | 2022-03-09 01:00 | NUR ---
MULTIPLE ATTEMPTS MADE TO START PERIPHERAL IV BUT WAS UNSUCCESSFUL. COUNSEL PROVIDER NOTIFIED AND ORDER PLACED FOR MIDLINE INSERTION.
[2022-03-09] MEDS: ALBUTEROL FS 2.5 MG/0.5 ML VIAL.NEB NEB SCH ×4 (01:42→19:49)
[2022-03-09] MEDS: IPRATROPIUM NEB FS 0.5 MG/2.5 ML AMPUL.NEB IH SCH ×4 (01:42→19:49)
[2022-03-09 05:45] LABS: BASOPHILS # (AUTO) 0.1 K/uL (0.0-0.2); BASOPHILS % (AUTO) 0.8 % (0.0-2.0); HEMATOCRIT 38 % (39-51); HEMOGLOBIN 12.6 g/dL (13.5-17.5); LYMPHOCYTES # (AUTO) 0.6 K/uL (0.8-4.8); LYMPHOCYTES % (AUTO) 4.8 % (20.0-44.0); MEAN CORPUSCULAR HGB CONC 34 g/dl (31.0-36.0); MEAN CORPUSCULAR VOLUME 93 fL (80-96); MONOCYTES # (AUTO) 0.6 K/uL (0.1-1.30); MONOCYTES % (AUTO) 4.9 % (2.0-12.0); NEUTROPHILS # (AUTO) 11.3 K/uL (1.8-8.9); NEUTROPHILS % (AUTO) 89.5 % (43.0-81.0); PLATELET COUNT (AUTO) 221 K/uL (150-450); RED BLOOD CELL COUNT(AUTO) 4.05 MIL/uL (4.5-6.0); WHITE BLOOD COUNT (AUTO) 12.6 K/uL (4.3-11.0)
[2022-03-09 05:57] LABS: CALCIUM, SERUM 8.8 mg/dL (8.5-10.1); CARBON DIOXIDE 24 mmol/L (21-32); CHLORIDE 104 mmol/L (98-107); CREATININE 1.6 mg/dL (0.6-1.3); GLUCOSE 139 mg/dL (74-106); MAGNESIUM 2.5 mg/dL (1.8-2.4); PHOSPHORUS 3.2 mg/dL (2.5-4.9); POTASSIUM 4.2 mmol/L (3.5-5.1); SODIUM SERUM 137 mmol/L (136-145); UREA NITROGEN, BLOOD 49 mg/dL (7-18)
--- NOTE | 2022-03-09 06:36 | NUR ---
PT FOUND SITTING UP IN BED. A&OX2 AND CONFUSED. PT ON 2 LPM NC AND TOLERATING WELL. RESPIRATIONS EVEN AND UNLABORED. SKIN IS WARM AND DRY. NO IV ACCESS AT THIS TIME. PT AWAITING MIDLINE INSERTION. BILAT SOFT WRIST RESTRAINTS IN PLACE. SAFETY PRECAUTIONS IN PLACE. BED LOCKED AND AT LOWEST LEVEL. X2 RAILS UP AND BED ALARM ON. CALL LIGHT WITHIN REACH.
--- NOTE | 2022-03-09 07:51 | NUR ---
RN OPENING NOTE PT FOUND SITTING UP IN BED. A&OX2 AND CONFUSED. . PT ON 4 LPM NC AND TOLERATING WELL. RESPIRATIONS EVEN AND UNLABORED. SKIN IS WARM AND DRY. CURRENTLY NO IV ACCESS PENDING MIDLINE INSERTION. BILAT SOFT WRIST RESTRAINTS IN PLACE. SAFETY PRECAUTIONS IN PLACE. BED LOCKED AND AT LOWEST LEVEL. X2 RAILS UP AND BED ALARM ON. CALL LIGHT WITHIN REACH.
[2022-03-09 08:00] VITALS: BP 104/69
[2022-03-09] MEDS: methylPREDNISolone SOD SUCC 40 MG/ML VIAL IV SCH (08:52)
[2022-03-09] MEDS: ASPIRIN 81 MG TAB.CHEW PO SCH (08:53)
[2022-03-09] MEDS: METOPROLOL SUCCINATE 25 MG TAB.SR.24H PO SCH (08:53)
[2022-03-09] MEDS: ALLOPURINOL 100 MG TABLET PO SCH (08:53)
[2022-03-09] MEDS: CLOPIDOGREL BISULFATE 75 MG TABLET PO SCH (08:55)
[2022-03-09] MEDS: ENSURE ENLIVE CHOC 237 ML CAN PO SCH ×3 (08:56→17:03)
[2022-03-09] MEDS: PANTOPRAZOLE 40 MG TABLET.DR PO SCH (08:56)
[2022-03-09] MEDS: IV D5/ 0.9% NACL 1,000 ML IV SCH (10:30)
[2022-03-09 16:00] VITALS: BP 131/59
[2022-03-09] MEDS: LEVOFLOXACIN (250MG) 250 MG TABLET PO SCH (17:03)
--- NOTE | 2022-03-09 18:37 | NUR ---
RN CLOSING PT IN BED. A&OX2 AND CONFUSED. PT ON 2 LPM NC AND TOLERATING WELL. RESPIRATIONS EVEN AND UNLABORED. SKIN IS WARM AND DRY. IV ACCESS ON LEFT UPPER ARM 18G MIDLINE. BILATERAL SOFT WRIST RESTRAINTS IN PLACE. SAFETY PRECAUTIONS IN PLACE. BED LOCKED AND AT LOWEST LEVEL. X2 RAILS UP AND BED ALARM ON. CALL LIGHT WITHIN REACH. WILL ENDORSE TO NIGHT NURSE FOR ISABELLE
--- NOTE | 2022-03-09 19:20 | NUR ---
RN NOTES RECEIVED REPORT FROM MORNING SHIFT. PATIENT IN BED A/O X1-2 BENGALI SPEAKING. WITH IV ACCESS AT RAMIREZ MIDLINE PATENT FLUSHES WELL. WITH ONGOING IV FLUIDS D5 NS 70ML/HR. ON ROOM AIR SATING 98% NO SOB NO DISTRESS NOTED AT THIS TIME. BILATERAL SOFT WRIST RESTRAINTS IN PLACE AT ALL TIMES CIRCULATION CHECK Q2H. HOB ELEVATED. CALL LIGHT WITHIN REACH. WILL CLOSELY MONITOR THE PATIENT
[2022-03-10] VITALS: BP 108/52
[2022-03-10] MEDS: IV D5/ 0.9% NACL 1,000 ML IV SCH ×2 (01:32→10:59)
[2022-03-10] MEDS: ALBUTEROL FS 2.5 MG/0.5 ML VIAL.NEB NEB SCH ×4 (01:35→20:10)
[2022-03-10] MEDS: IPRATROPIUM NEB FS 0.5 MG/2.5 ML AMPUL.NEB IH SCH ×4 (01:35→20:10)
--- NOTE | 2022-03-10 06:49 | NUR ---
RN NOTES PATIENT REMAINS STABLE NO SIGNIFICANT CHANGES, PATIENT ON BILATERAL WRIST RESTRAINTS IN PLACE CIRCULATION CHECK DONE.L UA MIDLINE IN PLACE. ALL SAFETY MEASURES IN PLACE AT ALL TIMES. VISUAL MONITORING RENDERED. WILL ENDORSED 5TO MORNING SHIFT FOR ISABELLE
--- NOTE | 2022-03-10 07:10 | NUR ---
RN OPENING NOTE RECEIVED PT IN BED. A&OX2 AND CONFUSED. . PT ON 2 LPM NC AND TOLERATING WELL SATTING 98%. RESPIRATIONS EVEN AND UNLABORED. SKIN IS WARM AND DRY. IV ACCESS RAMIREZ MIDLINE RUNNING NS AT 75 ML/HR. BILAT SOFT WRIST RESTRAINTS IN PLACE. SKIN AND CIRCULATION CHECKED WITHIN NORMAL.SAFETY PRECAUTIONS IN PLACE. BED LOCKED AND AT LOWEST LEVEL. X2 RAILS UP AND BED ALARM ON. CALL LIGHT WITHIN REACH. WILL MONITOR
[2022-03-10 08:00] VITALS: BP 124/63
[2022-03-10] MEDS: ENSURE ENLIVE CHOC 237 ML CAN PO SCH ×3 (08:01→17:19)
[2022-03-10] MEDS: PANTOPRAZOLE 40 MG TABLET.DR PO SCH (08:14)
[2022-03-10 08:19] LABS: BASOPHILS % (AUTO) 0.1 % (0.0-2.0); EOSINOPHILS % (AUTO) 0.1 % (0.0-6.0); HEMATOCRIT 39 % (39-51); HEMOGLOBIN 12.3 g/dL (13.5-17.5); LYMPHOCYTES # (AUTO) 0.9 K/uL (0.8-4.8); LYMPHOCYTES % (AUTO) 7.7 % (20.0-44.0); MEAN CORPUSCULAR HGB CONC 32 g/dl (31.0-36.0); MEAN CORPUSCULAR VOLUME 97 fL (80-96); MONOCYTES % (AUTO) 8.2 % (2.0-12.0); NEUTROPHILS # (AUTO) 9.8 K/uL (1.8-8.9); NEUTROPHILS % (AUTO) 83.9 % (43.0-81.0); PLATELET COUNT (AUTO) 171 K/uL (150-450); RED BLOOD CELL COUNT(AUTO) 3.98 MIL/uL (4.5-6.0); WHITE BLOOD COUNT (AUTO) 11.7 K/uL (4.3-11.0)
[2022-03-10 08:32] LABS: CALCIUM, SERUM 8.4 mg/dL (8.5-10.1); CREATININE 1.3 mg/dL (0.6-1.3); MAGNESIUM 2.2 mg/dL (1.8-2.4); PHOSPHORUS 2.6 mg/dL (2.5-4.9); POTASSIUM 3.9 mmol/L (3.5-5.1)
[2022-03-10] MEDS: METOPROLOL SUCCINATE 25 MG TAB.SR.24H PO SCH (09:05)
[2022-03-10] MEDS: ALLOPURINOL 100 MG TABLET PO SCH (09:05)
[2022-03-10] MEDS: ASPIRIN 81 MG TAB.CHEW PO SCH (09:06)
[2022-03-10] MEDS: CLOPIDOGREL BISULFATE 75 MG TABLET PO SCH (09:06)
[2022-03-10] MEDS ORDERED: SPIRONOLACTONE 25 MG TABLET PO SCH (11:00)
[2022-03-10] MEDS ORDERED: LEVO250T59 PO (13:16)
[2022-03-10] MEDS ORDERED: ALBU18HF2 INH (13:16)
[2022-03-10 16:00] VITALS: BP 139/66
[2022-03-10] MEDS: LEVOFLOXACIN (250MG) 250 MG TABLET PO SCH (16:49)
--- NOTE | 2022-03-10 18:50 | NUR ---
AIDS NURSE CLOSING NOTES: PT IN BED AWAKE, ALERT X 1, RESPIRATION IS EVEN AND UNLABORED, ON ROOM AIR SATTING 98% ,SKIN IS WARM AND DRY. SUSAN MIDLINE INTACT AND RUNNING D5W @ 75 HL/HR. JEVITY FEEDING STOPPED AT 0600. SUPRAPUBIC ROLLINS INTACT. ALL DUE MEDS ARE GIVEN ORDERED.KEPT CLEAN AND DRY AND COMFORTABLE, REPOSITION EVERY 2 HOURS,SAFETY PRECAUTIONS IN PLACE. BED LOCKED AND AT LOWEST LEVEL. X2 RAILS UP AND BED ALARM ON. R SOFT WRIST RESTRAINTS IN PLACE. CALL LIGHT WITHIN REACH.WILL ENDORSE TO PLANT HEALTH CARE TECHNICIAN RN FOR ISABELLE
--- NOTE | 2022-03-10 19:30 | NUR ---
MED SURGE OPEN NOTE. ALERT AND ORIENTED TIMES 2. UNLABORED AT ROOM AIR SATING AT 94 %. REORIENTED NEEDED. IN FLUIDS OF 75 ML/HR D5 NS. MID LINE ON RAMIREZ INTACT WITH NO S/S OF COMPLICATIONS. IN BED HOB ELEVATED SEMI-FOWLERS POSITION. BILATERAL HALF SIDE RAILS UPX2. BED IN LOW POSITION, LOCKED, AND EXIT ALARM ON. CALL LIGHT IN REACH.
[2022-03-10 20:00] VITALS: BP 150/70
--- NOTE | 2022-03-10 20:45 | NUR ---
RESIDENT IS ALERT AND ORIENTED TO NAME AND TIME. REORIENTED TO PLACE AND SITUATION. RAMIREZ MIDLINE DC'S. PRESSURE APPLIED FOR 5 MINS NO BLEEDING NOTED. UNLABORED BREATHING SATING AT 94 % AT ROOM AIR. DENIES PAIN OR DISCOMFORT.
--- NOTE | 2022-03-10 21:00 | NUR ---
PATIENT DISCHARGED HOME ORDERED IN PRIVATE VEHICLE. DENIES PAIN OR DISCOMFORT. PICKED UP BY SHANDA TIPTON AND FRIEND MARVIN. DISCHARGE INSTRUCTIONS PROVIDED TO AND PATIENT AND VERBALIZED UNDERSTANDING. PATIENT IN STABLE CONDITION.
== END 2022-03-11 01:06 | disposition home or self-care (01) | DRG 291 ==
LOC: ER 20:36 → TELE1 03-02 01:17 → TELE 03-03 20:01 → TELE1 03-03 20:15 → MEDSG1 03-04 09:49
PROVIDERS: ADMIT Nurse Practitioner Acute Care; ATTEND Student in an Organized Health Care Education/Training Program
PROC: 05H933Z Insertion of Infusion Device into Right Brachial Vein, Percutaneous Approach (ICD-10-PCS; principal; 2022-03-04)
PROC: 05HC33Z Insertion of Infusion Device into Left Basilic Vein, Percutaneous Approach (ICD-10-PCS; 2022-03-09)
DX: I11.0 Hypertensive heart disease with heart failure (principal); G93.41 Metabolic encephalopathy; N17.0 Acute kidney failure with tubular necrosis; I50.33 Acute on chronic diastolic (congestive) heart failure; J96.91 Respiratory failure, unspecified with hypoxia; D68.59 Other primary thrombophilia; E87.1 Hypo-osmolality and hyponatremia; J98.11 Atelectasis; D61.818 Other pancytopenia; J45.901 Unspecified asthma with (acute) exacerbation; Z20.822 Contact with and (suspected) exposure to COVID-19; E11.22 Type 2 diabetes mellitus with diabetic chronic kidney disease; I48.91 Unspecified atrial fibrillation; Z86.79 Personal history of other diseases of the circulatory system; Z79.02 Long term (current) use of antithrombotics/antiplatelets; Z79.82 Long term (current) use of aspirin; Z79.899 Other long term (current) drug therapy; Z79.51 Long term (current) use of inhaled steroids; Z95.0 Presence of cardiac pacemaker; E03.9 Hypothyroidism, unspecified; E78.5 Hyperlipidemia, unspecified; I25.10 Atherosclerotic heart disease of native coronary artery without angina pectoris; E83.41 Hypermagnesemia; T38.0X5A Adverse effect of glucocorticoids and synthetic analogues, initial encounter; Y92.89 Other specified places as the place of occurrence of the external cause; J44.9 Chronic obstructive pulmonary disease, unspecified; N28.1 Cyst of kidney, acquired; Z87.891 Personal history of nicotine dependence
CPT/HCPCS: 36410; 36415; 71045-TC; 76770-TC; 80048-TC; 80053-TC; 82570-TC; 83735-TC; 83880; 84100-TC; 84300-TC; 84439-TC; 84443-TC; 84484-TC; 85025-TC; 87081-TC; 93307-TC; 94799-TC; C9803; G0378; J1630; J1644; J1940; J2060; J2920; J2930; J3475; J3490; J7030; J7042; J7070